=== PATIENT | male | born 1970 | race Two or more races ===

== ENCOUNTER 2019-04-05 14:11 | Emergency (ER) | payer OTHER ==
[~2019-04-05] VITALS: Ht 170.2 cm; Wt 80.3 kg
--- NOTE | 2019-04-05 14:43 | NUR ---
pt rerc'd to er via em[facility] pt found on the st fighting with staff lab cant draw blood 2 point restraints labs and ua sen to lab AWAITING EVALUATION BY ER PROVIDER.
[2019-04-05 14:47] LABS: APPEARANCE,URINE Clear (CLEAR); BILIRUBIN,URINE Negative (NEGATIVE); BLOOD, URINE Negative Ery/uL (NEGATIVE); COLOR,URINE Yellow (YELLOW); KETONES,URINE Negative (NEGATIVE); LEUKOCYTE ESTERASE ,URINE Negative (NEGATIVE); NITRITE, URINE Negative (NEGATIVE); PROTEIN,URINE Negative (NEGATIVE); UGLUCOSE Negative (NEGATIVE); UROBILINOGEN,URINE 0.2 EU/dL (0.2)
[2019-04-05 15:00] LABS: BASOPHILS # (AUTO) 0.1 /CMM (0.0-0.2); BASOPHILS % (AUTO) 2.6 % (0.0-2.0); EOSINOPHILS % (AUTO) 5.4 % (0.0-6.0); HEMATOCRIT 39 % (39-51); HEMOGLOBIN 13.1 g/dL (13.5-17.5); LYMPHOCYTES # (AUTO) 1.5 /CMM (0.8-4.8); LYMPHOCYTES % (AUTO) 26.4 % (20.0-44.0); MEAN CORPUSCULAR HGB CONC 34 g/dl (31.0-36.0); MEAN CORPUSCULAR VOLUME 92 fL (80-96); MONOCYTES # (AUTO) 0.6 /CMM (0.1-1.30); MONOCYTES % (AUTO) 9.9 % (2.0-12.0); NEUTROPHILS # (AUTO) 3.2 /CMM (1.8-8.9); NEUTROPHILS % (AUTO) 55.7 % (43.0-81.0); PLATELET COUNT (AUTO) 350 /CMM (150-450); RED BLOOD CELL COUNT(AUTO) 4.25 MIL/uL (4.5-6.0); WHITE BLOOD COUNT (AUTO) 5.7 K/uL (4.3-11.0)
[2019-04-05] MEDS ORDERED: HALOPERIDOL LACTATE INJ 5 MG/ML VIAL IM ONE (15:00)
[2019-04-05] MEDS ORDERED: HALOPERIDOL LACTATE INJ 5 MG/ML VIAL ONE (15:02)
[2019-04-05 15:05] LABS: ALANINE AMINOTRANSFERASE 43 U/L (12-78); ALBUMIN 3.9 g/dL (3.4-5.0); ALKALINE PHOSPHATASE 81 U/L (46-116); ASPARTATE AMINOTRANSFERASE 28 U/L (15-37); BILIRUBIN,DIRECT 0.1 mg/dL (0.0-0.2); BILIRUBIN,TOTAL 0.5 mg/dL (0.2-1.0); CALCIUM, SERUM 8.3 mg/dL (8.5-10.1); CARBON DIOXIDE 27 mmol/L (21-32); CHLORIDE 101 mmol/L (98-107); CREATININE 0.5 mg/dL (0.6-1.3); GLUCOSE 92 mg/dL (74-106); POTASSIUM 3.8 mmol/L (3.5-5.1); SODIUM SERUM 138 mmol/L (136-145); TOTAL PROTEIN, SERUM 7.2 g/dL (6.4-8.2); UREA NITROGEN, BLOOD 14 mg/dL (7-18)
[2019-04-05 15:07] LABS: SALICYLATE < 2.8 mg/dL (2.8-20.0)
--- NOTE | 2019-04-05 15:07 | NUR ---
pt given haldol 5 mg im left deltoid
[2019-04-05 15:17] LABS: ALCOHOL, BLOOD < 3 mg/dL (0-0)
[2019-04-05 15:18] LABS: ACETAMINOPHEN 0 ug/ml (10-30)
--- NOTE | 2019-04-05 16:12 | NUR ---
pt sleeping soudly resp even inlabored
--- NOTE | 2019-04-05 16:14 | NUR ---
pt sent to ct
[2019-04-05] MEDS ORDERED: OLANZAPINE 10 MG VIAL IM ONE ×2 (19:30→19:51)
--- NOTE | 2019-04-05 21:19 | NUR ---
PT RESTING IN BED. AROUSABLE WITH PAINFUL STIMULI. VITAL SIGNS STABLE. STILL ON MONITOR, WILL CONTINUE TO MONITOR
--- NOTE | 2019-04-05 22:08 | NUR ---
PT AMBULATORY TO RESTROOM WITH ASSISTANCE
[2019-04-05 23:41] VITALS: BP 110/74
--- NOTE | 2019-04-05 23:41 | NUR ---
PT AAOX4. ABLE TO AMBULATE WITH STEADY GAIT. DENIES SI/HI AT THIS TIME. MEDICALLY CLEARED FOR DISCHARGE.Patient given written and verbal discharge instructions. Patient verbalizes understanding of instructions. Patient is ambulatory with steady gait. Refuses offer of snf placement. Patient given list of available shelters in surrounding area.
== END 2019-04-05 23:42 | disposition home or self-care (01) ==
LOC: ER 14:11
DX: F15.129 Other stimulant abuse with intoxication, unspecified (principal); F25.9 Schizoaffective disorder, unspecified
CPT/HCPCS: 36415; 70450; 80048; 80076; 80305; 80307; 80329; 81001; 85025; 96372 ×2; 99284; G0480; J1630; J3490; 81000-TC